=== PATIENT | male | born 1940 | race Caucasian/White ===

== ENCOUNTER → 2024-02-26 14:40 | Outpatient (REF) | payer MEDICARE, SELFPAY | LOC: HWRAD 14:40 | PROVIDERS: ATTENDING PHYSICIAN Family Medicine | DX: R04.2 Hemoptysis (principal) | CPT/HCPCS: 71046 ==

== ENCOUNTER 2024-12-19 06:25 | Emergency (ER) | payer MEDICARE, SELFPAY ==
[2024-12-19 06:33] VITALS: BMI 22.7
[2024-12-19 06:34] VITALS: BP 157/77
[2024-12-19 06:57] LABS: Hematocrit 40.0 % (39.0-52.0); Hemoglobin 13.8 g/dL (13.0-18.0); Mean Corp Hgb Conc. 34.5 g/dL (33.0-37.0); Mean Corpuscular Volume 93.0 fL (80.0-94.0); Nucleated Red Blood Cells % 0 % (-); Platelet Count 191 10^3/uL (130-400); Red Cell Dist. Width 13.0 % (11.5-14.5)
[2024-12-19 07:00] VITALS: BP 127/78
[2024-12-19 07:08] LABS: ALT (SGPT) 13 U/L (0-50); AST (SGOT) 28 U/L (17-59); Albumin 4.2 g/dl (3.5-5.0); Alkaline Phosphatase 79 U/L (38-126); Blood Urea Nitrogen 24 mg/dl (9-20); Calcium 9.3 mg/dl (8.4-10.2); Carbon Dioxide 23 mmol/L (22-30); Chloride 106 mmol/L (98-107); Estimated Creatinine Clearance 54 ml/min; Glucose 116 mg/dl (70-99); Potassium 4.1 mmol/L (3.5-5.1); Sodium 137 mmol/L (135-145); Total Protein 7.5 g/dl (6.3-8.2); eGFR > 60.00
[2024-12-19] MEDS: NSS 1000 IV (07:41)
--- NOTE | 2024-12-19 07:42 | ED.GENMED ---
History of Present Illness
General
Chief Complaint: Urinary Symptoms
Source: patient and spouse
Exam Limitations: none
Time Seen by Provider: 12/19/24 07:01
Nursing documentation reviewed up to this point in time: agreed with
History of Present Illness
History of Present Illness:
84-year-old male history of bladder cancer gets every 6-month cystoscopies by Dr. Jaramillo at [place], underwent a cystoscopy 3 days ago past few hours has been urinating frequency with weakness, concerned because he has sepsis previously he
takes Eliquis and beta-mikaela not on antibiotics currently no chest pain or shortness of breath no headache, no abdominal pain no flank pain no fever chills
Past History
Past History
ED Past Medical History: Cancer, Psychiatric (PTSD) and Other (migraines, BPH, Rectal bleeding, Kidney stones,)
ED Past Surgical History: Urological (Stent)
Social History
Tobacco: Non-smoker
Alcohol: None
Drug: None
Personal:
Living: with family
Employment: Retired
Phy Exam
Physical Exam
Physical Exam:
Physical Exam
General: no apparent distress, not acutely ill feels warm but
Neck: No jaundice
Heart: Regular
Lungs: no acute respiratory distress. clear bilaterally
Abdomen: Soft nontender
Neuro: alert and oriented. Moves all extremities able to lift his legs off the bed
Skin: no rash
Psychiatric: well kept. interactive and cooperative
Extremities: no edema.
Course
Orders/Labs/Results
Orders:
Orders
12/19/24 06:43
CMP [Comprehensive Metabolic Panel] Urgent
Complete Blood Count/With Diff Urgent
12/19/24 07:33
0.9% Sodium Chloride 1000 ml [Nss] 1,000 ml IV BOLUS
Acetaminophen [Tylenol] 1,000 mg PO NOW STA
12/19/24 07:39
Urinalysis Reflex To Culture Urgent
Date Specimen was Collected: 12/19/24
Time Specimen was Collected: 06:42
Urine Microscopic Reflex Cult Urgent
Urine Culture Urgent
HEIDE Source: U
Specimen Description:
Date Specimen was Collected: 12/19/24
Time Specimen was Collected: 06:42
12/19/24 08:41
CefTRIAXone [Rocephin] 1,000 mg IV NOW STA
Abnormal Lab Results
12/19/24 12/19/24
06:43 07:39
RBC 4.30 L 10^6/uL
(4.70-6.10)
MCH 32.1 H pg
(27.0-31.0)
MPV 10.7 H fL
(7.4-10.4)
Absolute Neuts (auto) 8.4 H 10^3/uL
(1.4-6.5)
Absolute Lymphs (auto) 0.7 L 10^3/uL
(1.2-3.4)
Absolute Monos (auto) 1.4 H 10^3/uL
(0.1-0.6)
Neutrophils % 79.7 H %
(42.2-75.2)
Lymphocytes % 6.3 L %
(20.5-51.1)
Monocytes % 13.1 H %
(1.7-9.3)
BUN 24 H mg/dl
(9-20)
Glucose 116 H mg/dl
(70-99)
Urine Ketones 1+ A
(Negative)
Urine Bacteria (Reflex) Moderate A
(Negative)
Urine Albumin (Reflex) 2+ A
(Neg - Trace)
12/19/24 06:43
12/19/24 06:43
Vital Signs
Initial and Last Documented VS:
Initial Vital Signs
Temp Pulse Resp Pulse Ox
99.6 F 94 20 94
12/19/24 06:30 12/19/24 06:30 12/19/24 06:30 12/19/24 06:30
Last Documented Vital Signs
Temp Pulse Resp BP Pulse Ox
99.6 F 93 21 157/77 94
12/19/24 06:30 12/19/24 06:36 12/19/24 06:36 12/19/24 06:34 12/19/24 07:43
MDM/Problems Addressed
Differential Diagnosis Includes:
UTI, sepsis bacteremia deconditioning
MDM/Problems Addressed:
Weakness urinary frequency
Chronic conditions affecting care:
Bladder cancer
Acute Exacerbation and/or Progression of Chronic Illness:
Cystoscopy for bladder cancer
*Pulse Oximetry
SaO2: 94
Oxygen Mode of Delivery: Room air
Patient hypoxic: no
*Critical Care Note
Total Time (30-74mins, 75-104mins- exclusive of procedures): Not Applicable
Update Note
Update Note:
9:30 PM labs noted patient feeling much better after IV fluids Tylenol and antibiotics cultures been sent patient ambulating without difficulty
ED Attending Note
-
Portions of this chart may have been created with voice recognition software.� Occasional wrong word or��sound alike� substitutions may have occurred due to the inherent limitations of voice recognition software.
Discharge Plan
Departure
Prescriptions:
No Action
terazosin [Hytrin] 2 MG capsule
4 mg PO HS
voovorn-guanqyxpyfnfv-iwqnpzbn [Excedrin Migraine] 1 TABLET tablet
2 tab PO DAILYPRN PRN (Reason: migranes)
thiamine HCl (vitamin B1) [Vitamin B-1] 100 MG tablet
100 mg PO BID
chlordiazepoxide HCl 10 MG capsule
10 mg PO DAILYPRN PRN (Reason: migraines with excedrine)
Patient Comments:
06/04/2019: per PDMP last filled 03/16/19 60 for 30 at [facility]
cholecalciferol (vitamin D3) 1,000 UNITS tablet
1,000 units PO BID
riboflavin (vitamin B2) 400 MG tablet
400 mg PO BID
riboflavin (vitamin B2) 400 MG tablet
400 mg PO DAILYPRN PRN (Reason: w/next dose if migraine)
levofloxacin 250 MG tablet
250 mg PO DAILY@1600 Qty: 7 0RF
tamsulosin 0.4 MG capsule
0.4 mg PO DAILY Qty: 30 0RF
finasteride 5 MG tablet
5 mg PO DAILY Qty: 30 0RF
Referrals:
UNKNOWN,NO INTERVIEW [Family Provider]
Interventions
Interventions:
*Risk Screen - Suicide Last Done: 12/19/24 06:34
*General Assessment Last Done: 12/19/24 06:34
*Neglect/Abuse Screening Last Done: 12/19/24 06:34
*ED- Fall Risk Assessment Last Done: 12/19/24 06:34
*ED COVID-19 Vaccine History Last Done: 12/19/24 06:34
ED-Male Genitourinary Assessment Last Done: 12/19/24 06:39
Discharge Date and Time
Print Language: YAKUT
[2024-12-19] MEDS: TYLENOL 1000 MG PO (07:45)
[2024-12-19 08:00] VITALS: BP 143/80
[2024-12-19 08:18] LABS: Urine Character Clear (Clear)
[2024-12-19 08:48] LABS: Urine Red Blood Cell 0-2 /HPF (0-2)
[2024-12-19 08:49] LABS: Urine Squamous Cell 0-2 /LPF (Few)
[2024-12-19] MEDS: ROCEPHIN 1000 MG IV (08:59)
[2024-12-19 09:00] VITALS: BP 146/89
[2024-12-19 10:00] VITALS: BP 136/81
== END 2024-12-19 11:20 | disposition home or self-care (01) ==
LOC: EMR 06:25
PROVIDERS: Emergency Medicine; EMERGENCY PHYSICIAN Emergency Medicine
DX: N39.0 Urinary tract infection, site not specified (principal); R53.1 Weakness; F43.10 Post-traumatic stress disorder, unspecified; N40.1 Benign prostatic hyperplasia with lower urinary tract symptoms; Z85.51 Personal history of malignant neoplasm of bladder; Z87.442 Personal history of urinary calculi
CPT/HCPCS: 99283; 96374; 96361; 80053; 81003; 81015; 85025; 87077; 87086; 87186